=== PATIENT | male | born 1970 | race Caucasian/White ===

== ENCOUNTER 2016-09-25 21:08 | Emergency (ER) | payer OTHER ==
[2016-09-25] MEDS ORDERED: MAG HYDROX/AL HYDROX/SIMETH 30 ML UDC ONE (23:46)
[2016-09-25] MEDS ORDERED: PHENobarb/HYOSCY/ATROPINE/SCOP 5 ML SYRINGE PO STA (23:46)
[2016-09-25] MEDS ORDERED: LIDOCAINE VISCOUS 2% 15 ML UDC MM ONE (23:46)
[2016-09-25] MEDS ORDERED: LIDOCAINE VISCOUS 2% 15 ML UDC MM STA (23:46)
[2016-09-25] MEDS ORDERED: PHENobarb/HYOSCY/ATROPINE/SCOP 5 ML SYRINGE PO ONE (23:46)
[2016-09-25] MEDS ORDERED: MAG HYDROX/AL HYDROX/SIMETH 30 ML UDC PO STA (23:46)
[2016-09-26] MEDS ORDERED: PANTOPRAZOLE 40 MG TABLET PO STA (01:09)
[2016-09-26] MEDS ORDERED: PANTOPRAZOLE 40 MG TABLET ONE (01:10)
== END 2016-09-26 01:18 | disposition home or self-care (01) ==
DX: R10.9 Unspecified abdominal pain (principal)
CPT/HCPCS: 36415; 80053; 83690; 85025; 99283; 99284; A9270